=== PATIENT | male | born 1950 | race Caucasian/White ===

== ENCOUNTER 2022-06-27 09:31 | Inpatient (IN) | payer MEDICARE, OTHER ==
[~2022-06-27] VITALS: Ht 170.2 cm; Wt 56.7 kg
[2022-06-27] MEDS ORDERED: METF-442 PO (09:42)
[2022-06-27] MEDS ORDERED: ASPI81TA31 PO (09:42)
[2022-06-27] MEDS ORDERED: INSU3INS6 SQ (09:42)
[2022-06-27] MEDS ORDERED: CARV3.122 PO (09:42)
[2022-06-27] MEDS ORDERED: SEMA0.25 SQ (09:42)
[2022-06-27] MEDS ORDERED: IV NORMAL SALINE 1000 ML BAG IV ONE ×2 (10:15→11:45)
[2022-06-27 10:37] LABS: HEMATOCRIT 38.7 % (36.7-47.1); MEAN CORPUSCULAR HEMOGLOBIN 29.4 uug (23.8-33.4); MEAN CORPUSCULAR VOLUME 88.8 fL (73.0-96.2); PLATELET COUNT (AUTO) 144 K/uL (152-348)
[2022-06-27 10:46] LABS: CARBON DIOXIDE 29 mmol/L (21-32); CHLORIDE 100 mmol/L (98-107); GLUCOSE 294 mg/dL (74-106); POTASSIUM 4.7 mmol/L (3.5-5.1); UREA NITROGEN, BLOOD 17 mg/dL (7-18)
[2022-06-27 10:54] LABS: ALANINE AMINOTRANSFERASE 22 U/L (16-63); ALKALINE PHOSPHATASE 47 U/L (50-136); ASPARTATE AMINOTRANSFERASE 15 U/L (15-37); BILIRUBIN,DIRECT 0.2 mg/dL (0.0-0.2); BILIRUBIN,TOTAL 0.3 mg/dL (0.2-1.0); LIPASE 230 U/L (73-393); TOTAL PROTEIN, SERUM 6.3 g/dL (6.4-8.2)
--- NOTE | 2022-06-27 11:40 | NUR ---
Pt to be admitted to Tele floor. Per ER admitting ok to admit pt to this facility. Paged EPIC: Rick Hernandez NP on-call. Assigned room: 316 Dx: GI Bleed
[2022-06-27] MEDS ORDERED: PIPERACILLIN SODIUM/TAZOBACTAM 3.375 G in IV DEXTROSE 5% 50 ML IV ONE (11:45)
[2022-06-27] MEDS ORDERED: OCTREOTIDE ACETATE 100 MCG/1 MLVIAL IV ONE (14:00)
[2022-06-27] MEDS ORDERED: ONDANSETRON 4 MG/2 ML VIAL IV PRN (14:00)
[2022-06-27] MEDS ORDERED: MAGNESIUM HYDROXIDE 30 ML LIQUID UDC PO PRN (14:00)
[2022-06-27] MEDS ORDERED: MORPHINE SULFATE 2 MG/1 ML DISP.SYRIN IV PRN (14:00)
[2022-06-27] MEDS ORDERED: ACETAMINOPHEN 325 MG TABLET PO PRN (14:00)
[2022-06-27] MEDS ORDERED: OCTREOTIDE ACETATE 50 MCG/1 ML ML IV ONE (14:45)
[2022-06-27 15:33] VITALS: BP 159/67
[2022-06-27] MEDS ORDERED: DEXTROSE 50% 50 ML DISP.SYRIN IV PRN (16:30)
[2022-06-27] MEDS: BLOOD SUGAR DIAGNOSTIC 1 EACH STRIP VI SCH ×2 (16:54→21:05)
[2022-06-27] MEDS: NICOTINE 21 MG/24HR PATCH TD SCH (17:16)
[2022-06-27] MEDS: OCTREOTIDE ACETATE DRIP 500 MCG in IV NORMAL SALINE 99 ML IV SCH (17:17)
[2022-06-27] MEDS: PANTOPRAZOLE SODIUM 40 MG TABLET.DR PO SCH ×2 (17:17→23:06)
[2022-06-27] MEDS: CARVEDILOL 3.125 MG TABLET PO SCH (17:24)
[2022-06-27] MEDS: IV NS 1000 ML 1,000 ML IV PRN (17:59)
[2022-06-27] MEDS: CEFTRIAXONE 1 G in IV DEXTROSE 5% 50 ML IV SCH (17:59)
[2022-06-27 20:00] VITALS: BP 130/62
[2022-06-27] MEDS: INSULIN GLARGINE,HUM 300 UNITS/3 ML CARTRIDGE SQ SCH (20:51)
[2022-06-27] MEDS: INSULIN REGULAR, HUMAN 300 UNIT/3 ML VIAL SQ PRN (20:52)
[2022-06-27] MEDS ORDERED: TRAZ-257 PO (21:16)
[2022-06-27] MEDS ORDERED: HYDR-501 PO (21:18)
[2022-06-27] MEDS ORDERED: DULO20CA PO (21:20)
[2022-06-27] MEDS: hydrOXYzine HCL 25 MG TABLET PO SCH (21:52)
[2022-06-27] MEDS: TRAZODONE 100 MG TABLET PO SCH (21:53)
[2022-06-27] MEDS: DULOXETINE 20 MG CAPSULE.DR PO SCH (21:53)
[2022-06-28] VITALS: BP 108/53
[2022-06-28] MEDS: OCTREOTIDE ACETATE DRIP 500 MCG in IV NORMAL SALINE 99 ML IV SCH ×3 (03:38→22:18)
[2022-06-28 04:07] VITALS: BP 125/55
--- NOTE | 2022-06-28 05:40 | NUR ---
TEXT DR. COLE FOR MRI APPROVAL.
--- NOTE | 2022-06-28 05:42 | NUR ---
MRI CANNOT BE DONE PATIENT HAS PACEMAKER
[2022-06-28] MEDS: BLOOD SUGAR DIAGNOSTIC 1 EACH STRIP VI SCH ×4 (06:30→20:50)
[2022-06-28 07:08] LABS: HEMATOCRIT 34.2 % (36.7-47.1); MEAN CORPUSCULAR VOLUME 87.2 fL (73.0-96.2); PLATELET COUNT (AUTO) 127 K/uL (152-348)
[2022-06-28 07:35] LABS: CREATININE 0.8 mg/dL (0.6-1.3); MAGNESIUM 1.5 mg/dL (1.8-2.4); PHOSPHOROUS 4.2 mg/dL (2.5-4.9); POTASSIUM 4.1 mmol/L (3.5-5.1)
--- NOTE | 2022-06-28 08:00 | NUR ---
AWAKE ALERT AND ORIENTED X3, DENIES PAIN OR SIGNS OF DISTRESS. ON SANDOSTATIN DRIP TILL FURTHER ORDER
[2022-06-28] MEDS: PANTOPRAZOLE SODIUM 40 MG TABLET.DR PO SCH ×2 (09:16→20:45)
[2022-06-28] MEDS: CARVEDILOL 3.125 MG TABLET PO SCH ×2 (09:17→17:00)
[2022-06-28] MEDS: NICOTINE 21 MG/24HR PATCH TD SCH (09:17)
[2022-06-28] MEDS: IV NS 1000 ML 1,000 ML IV PRN ×2 (09:19→23:57)
[2022-06-28] MEDS: MAGNESIUM SULFATE/D5W 100 ML IV SCH ×2 (09:59→10:49)
--- NOTE | 2022-06-28 10:00 | NUR ---
DR BHARDWAJ CALLED WITH ORDER TO START SOFT DIET TOLERATED AND DECREASE IVF TO 30 MLS/HR.. SR ON MONITOR Addendum: 06/28/22 at 1317 by COLEMAN DENTON RN ERROR
--- NOTE | 2022-06-28 11:00 | NUR ---
PER LANCE FROM MRI PATIENT CAN NOT HAVE MRI DUE TO PACEMAKER. PATIENT PACEMAKER RECORD IS AT HOME HOSPITALIST AWARE
[2022-06-28 12:00] VITALS: BP 151/76
[2022-06-28] MEDS: INSULIN REGULAR, HUMAN 300 UNIT/3 ML VIAL SQ PRN ×3 (12:04→20:40)
--- NOTE | 2022-06-28 13:13 | NUR ---
SEEN BY HOSPITALIST FOR FOLLOW-UP, SEE NOTES
[2022-06-28 16:00] VITALS: BP 127/64
[2022-06-28] MEDS: GLUCERNA SHAKE 237 ML CAN PO SCH (17:01)
[2022-06-28] MEDS: CEFTRIAXONE 1 G in IV DEXTROSE 5% 50 ML IV SCH (17:06)
--- NOTE | 2022-06-28 17:46 | NUR ---
CONTINUE SANDOSTATIN NO HERVE OF ACTIVE BLEEDING. PACING WITH UNDERLYING SR
[2022-06-28 20:11] VITALS: BP 121/61
[2022-06-28] MEDS: INSULIN GLARGINE,HUM 300 UNITS/3 ML CARTRIDGE SQ SCH (20:35)
[2022-06-28] MEDS: DULOXETINE 20 MG CAPSULE.DR PO SCH (20:45)
[2022-06-28] MEDS: hydrOXYzine HCL 25 MG TABLET PO SCH (20:45)
[2022-06-28] MEDS: TRAZODONE 100 MG TABLET PO SCH (20:45)
[2022-06-29 00:13] VITALS: BP 146/71
[2022-06-29 04:36] VITALS: BP 107/58
[2022-06-29] MEDS: BLOOD SUGAR DIAGNOSTIC 1 EACH STRIP VI SCH ×4 (06:55→20:48)
[2022-06-29 07:26] LABS: CREATININE 0.8 mg/dL (0.6-1.3); POTASSIUM 4.3 mmol/L (3.5-5.1)
[2022-06-29 08:00] VITALS: BP 136/74
[2022-06-29] MEDS: CARVEDILOL 3.125 MG TABLET PO SCH ×2 (08:49→17:29)
[2022-06-29] MEDS: NICOTINE 21 MG/24HR PATCH TD SCH (08:49)
[2022-06-29] MEDS: PANTOPRAZOLE SODIUM 40 MG TABLET.DR PO SCH ×2 (08:49→20:48)
[2022-06-29] MEDS: GLUCERNA SHAKE 237 ML CAN PO SCH ×2 (08:50→17:29)
[2022-06-29] MEDS: OCTREOTIDE ACETATE DRIP 500 MCG in IV NORMAL SALINE 99 ML IV SCH ×2 (08:51→18:54)
[2022-06-29 09:36] LABS: HEMATOCRIT 37.4 % (36.7-47.1); MEAN CORPUSCULAR HEMOGLOBIN 29.7 uug (23.8-33.4); PLATELET COUNT (AUTO) 146 K/uL (152-348)
[2022-06-29 12:00] VITALS: BP 127/59
[2022-06-29] MEDS ORDERED: MAGNESIUM CITRATE 296 ML BOTTLE PO ONE (12:15)
[2022-06-29] MEDS: INSULIN REGULAR, HUMAN 300 UNIT/3 ML VIAL SQ PRN ×3 (12:22→20:54)
[2022-06-29] MEDS ORDERED: MAGNESIUM HYDROXIDE 30 ML LIQUID UDC PO ONE (13:00)
[2022-06-29 16:00] VITALS: BP 148/71
[2022-06-29] MEDS: CEFTRIAXONE 1 G in IV DEXTROSE 5% 50 ML IV SCH (17:30)
--- NOTE | 2022-06-29 18:44 | NUR ---
PT AOX4. AMBULATORY WITH ASSIST. NO ACUTE DISTRESS NOTED. NO PAIN COMPLAIN, NO SOB NOTED. PT WAS SEEN BY MD. PT WAS DOWNGRADED FROM TELE TO MS. MOM WAS GIVEN PER PT REQUEST. NO BM TODAY. CONTINUE SANDOSTATIN PER MD. NO ACTIVE BLEEDING NOTED.
[2022-06-29] MEDS: hydrOXYzine HCL 25 MG TABLET PO SCH (20:48)
[2022-06-29] MEDS: DULOXETINE 20 MG CAPSULE.DR PO SCH (20:48)
[2022-06-29] MEDS: TRAZODONE 100 MG TABLET PO SCH (20:48)
[2022-06-29 20:53] VITALS: BP 119/61
[2022-06-29] MEDS: INSULIN GLARGINE,HUM 300 UNITS/3 ML CARTRIDGE SQ SCH (20:53)
[2022-06-30 04:30] VITALS: BP 102/62
[2022-06-30] MEDS: OCTREOTIDE ACETATE DRIP 500 MCG in IV NORMAL SALINE 99 ML IV SCH (04:57)
[2022-06-30] MEDS: BLOOD SUGAR DIAGNOSTIC 1 EACH STRIP VI SCH ×4 (06:41→21:21)
[2022-06-30] MEDS: NICOTINE 21 MG/24HR PATCH TD SCH (08:34)
[2022-06-30] MEDS: CARVEDILOL 3.125 MG TABLET PO SCH ×3 (08:40→17:26)
[2022-06-30] MEDS: GLUCERNA SHAKE 237 ML CAN PO SCH ×2 (08:41→17:07)
[2022-06-30] MEDS: INSULIN REGULAR, HUMAN 300 UNIT/3 ML VIAL SQ PRN ×4 (08:41→21:28)
[2022-06-30] MEDS: PANTOPRAZOLE SODIUM 40 MG TABLET.DR PO SCH ×2 (09:46→21:12)
[2022-06-30] MEDS ORDERED: MIRALAX 17 GM POWD.PACK PO ONE (11:30)
[2022-06-30 12:00] VITALS: BP 106/64
[2022-06-30] MEDS: PROTEIN SUPPLEMENT (PROSTAT) 30 ML LIQUID PO SCH (12:47)
[2022-06-30] MEDS ORDERED: IOHEXOL 350 100 ML INFUS..BTL ONE (15:36)
[2022-06-30] MEDS ORDERED: SWABABLE VALVE TRANSFER SET EA MC ONE (15:36)
[2022-06-30] MEDS ORDERED: IV NORMAL SALINE 250 ML IV ONE (15:36)
[2022-06-30] MEDS: CEFTRIAXONE 1 G in IV DEXTROSE 5% 50 ML IV SCH (17:10)
[2022-06-30 20:43] VITALS: BP 111/57
[2022-06-30] MEDS: hydrOXYzine HCL 25 MG TABLET PO SCH (21:12)
[2022-06-30] MEDS: TRAZODONE 100 MG TABLET PO SCH (21:12)
[2022-06-30] MEDS: DULOXETINE 20 MG CAPSULE.DR PO SCH (21:12)
[2022-06-30] MEDS: INSULIN GLARGINE,HUM 300 UNITS/3 ML CARTRIDGE SQ SCH (21:29)
[2022-07-01 04:05] VITALS: BP 109/60
[2022-07-01] MEDS: BLOOD SUGAR DIAGNOSTIC 1 EACH STRIP VI SCH ×4 (06:44→21:00)
[2022-07-01 07:20] LABS: HEMATOCRIT 39.1 % (36.7-47.1); MEAN CORPUSCULAR HEMOGLOBIN 29.3 uug (23.8-33.4); MEAN CORPUSCULAR VOLUME 86.5 fL (73.0-96.2); PLATELET COUNT (AUTO) 155 K/uL (152-348)
[2022-07-01 07:46] LABS: CREATININE 0.8 mg/dL (0.6-1.3); MAGNESIUM 1.9 mg/dL (1.8-2.4); PHOSPHOROUS 4.6 mg/dL (2.5-4.9); POTASSIUM 4.8 mmol/L (3.5-5.1)
[2022-07-01] MEDS: PROTEIN SUPPLEMENT (PROSTAT) 30 ML LIQUID PO SCH (08:00)
[2022-07-01 08:09] LABS: *BILIRUBIN,URIN NEGATIVE (NEGATIVE); *BLOOD, URINE NEGATIVE (NEGATIVE); *CLARITY,URINE CLEAR (CLEAR); *COLOR,URINE YELLOW (YELLOW); *KETONES,URINE NEGATIVE (NEGATIVE); *UROBILINOGEN,URINE 0.2 E.U./dl (NORMAL); LEUKOCYTE ESTERASE ,URINE NEGATIVE (NEGATIVE); NITRITE, URINE NEGATIVE (NEGATIVE); UGLUCOSE NEGATIVE (NEGATIVE)
[2022-07-01] MEDS: CARVEDILOL 3.125 MG TABLET PO SCH ×2 (09:00→18:10)
[2022-07-01] MEDS: PANTOPRAZOLE SODIUM 40 MG TABLET.DR PO SCH ×2 (09:34→22:20)
[2022-07-01] MEDS: GLUCERNA SHAKE 237 ML CAN PO SCH ×2 (09:35→18:10)
[2022-07-01] MEDS: NICOTINE 21 MG/24HR PATCH TD SCH (09:35)
[2022-07-01 12:02] VITALS: BP 119/53
[2022-07-01] MEDS: INSULIN REGULAR, HUMAN 300 UNIT/3 ML VIAL SQ PRN ×3 (13:08→23:26)
[2022-07-01 15:58] VITALS: BP 111/57
[2022-07-01] MEDS: CEFTRIAXONE 1 G in IV DEXTROSE 5% 50 ML IV SCH (18:09)
[2022-07-01 20:00] VITALS: BP 90/53
[2022-07-01] MEDS: INSULIN GLARGINE,HUM 300 UNITS/3 ML CARTRIDGE SQ SCH (21:00)
[2022-07-01] MEDS: TRAZODONE 100 MG TABLET PO SCH (22:19)
[2022-07-01] MEDS: DULOXETINE 20 MG CAPSULE.DR PO SCH (22:19)
[2022-07-01] MEDS: hydrOXYzine HCL 25 MG TABLET PO SCH (22:19)
[2022-07-02 04:00] VITALS: BP 89/53
[2022-07-02] MEDS ORDERED: IV NS 1000 ML 1,000 ML IV ONE (05:30)
[2022-07-02] MEDS: BLOOD SUGAR DIAGNOSTIC 1 EACH STRIP VI SCH ×2 (06:47→11:30)
[2022-07-02 07:04] LABS: HEMATOCRIT 36.5 % (36.7-47.1); MEAN CORPUSCULAR HEMOGLOBIN 29.7 uug (23.8-33.4); PLATELET COUNT (AUTO) 146 K/uL (152-348)
[2022-07-02 07:26] LABS: CREATININE 0.7 mg/dL (0.6-1.3); MAGNESIUM 1.9 mg/dL (1.8-2.4); PHOSPHOROUS 4.3 mg/dL (2.5-4.9); POTASSIUM 4.3 mmol/L (3.5-5.1)
[2022-07-02] MEDS: PROTEIN SUPPLEMENT (PROSTAT) 30 ML LIQUID PO SCH (08:00)
[2022-07-02] MEDS: CARVEDILOL 3.125 MG TABLET PO SCH (09:00)
[2022-07-02] MEDS: GLUCERNA SHAKE 237 ML CAN PO SCH (09:26)
[2022-07-02] MEDS: NICOTINE 21 MG/24HR PATCH TD SCH (09:26)
[2022-07-02] MEDS: PANTOPRAZOLE SODIUM 40 MG TABLET.DR PO SCH (09:26)
[2022-07-02 12:00] VITALS: BP 124/80
[2022-07-02] MEDS ORDERED: PANT40TA49 PO (12:07)
[2022-07-02] MEDS: INSULIN REGULAR, HUMAN 300 UNIT/3 ML VIAL SQ PRN (13:32)
--- NOTE | 2022-07-02 15:00 | NUR ---
Patient discharged. Discharge packet given and explained. IV removed per protocol. Patient escorted off floor to transportation via wheelchair.
== END 2022-07-02 14:30 | DRG 378 ==
LOC: ER 09:37 → TELE3 13:48 → MEDSURG3 06-29 11:25
PROVIDERS: ADMIT Nurse Practitioner Family; ATTEND Registered Nurse
DX: K92.2 Gastrointestinal hemorrhage, unspecified (principal); E87.20 Acidosis, unspecified; K76.6 Portal hypertension; K70.30 Alcoholic cirrhosis of liver without ascites; E11.9 Type 2 diabetes mellitus without complications; Z79.4 Long term (current) use of insulin; E78.5 Hyperlipidemia, unspecified; Z95.0 Presence of cardiac pacemaker; I25.10 Atherosclerotic heart disease of native coronary artery without angina pectoris; I10 Essential (primary) hypertension; Z95.1 Presence of aortocoronary bypass graft; Z79.84 Long term (current) use of oral hypoglycemic drugs; Z20.822 Contact with and (suspected) exposure to COVID-19; K80.20 Calculus of gallbladder without cholecystitis without obstruction; I85.10 Secondary esophageal varices without bleeding; Z87.891 Personal history of nicotine dependence; F10.21 Alcohol dependence, in remission; K76.89 Other specified diseases of liver
CPT/HCPCS: 36415; 71045; 74160; 83605; 83690; 83735; 84100; 84484; 85025; 85730; 87040; 93005; A4663; G0378; J0696; J1815; J2354; J3475; J7040; Q9967